=== PATIENT | male | born 1975 | race Caucasian/White ===

== ENCOUNTER 2016-08-21 09:54 | Emergency (ER) | payer MEDICARE ==
[~2016-08-21] VITALS: Ht 177.8 cm; Wt 66.0 kg
[2016-08-21 09:56] VITALS: BP 106/66; PULSE 76; RESP 20; TEMP 97.6; O2SAT 100
[2016-08-21 10:19] VITALS: BP 111/72; PULSE 63; RESP 16; O2SAT 100
--- NOTE | 2016-08-21 10:29 | PD ---
HPI Chief Complaint: OD/ Ingestion Time Seen by Provider: 10:16 Travel History International Travel<30 days: No Contact w/Intl Traveler<30days: No Traveled to known affect area: No History of Present Illness HPI This is a 41-year-old male with a history of depression, presents here at the request of his psychiatrist for overdose. Patient reportedly took 20 Klonopin. He reports taking 15 last night and 5 this morning. He also states he took 1 Seroquel and 2 Paxil. The patient reports he was trying to hurt himself. He denies any previous suicide attempts. When asked why he took the overdose, he reports that he is going through stress. He denies any other ingestion. He denies any other medical history. [facility] Social History Tobacco Use: No (unknown) Allergies-Medications (Allergen,Severity, Reaction): Coded Allergies: Penicillin (Verified Allergy, Severe, Anaphylaxis, 08/21/16) Review of Systems Except as stated in HPI: all other systems reviewed are Neg HENT: No: Headaches, Vertigo, Lightheadedness Cardiovascular: No: Chest Pain or Discomfort, Palpitations Respiratory: No: Cough, Shortness of Breath Gastrointestinal: No: Nausea, Vomiting, Abdominal Pain Genitourinary: No: Frequency, Dysuria Musculoskeletal: No: Weakness Neurologic: Positive: Other (slight sleepiness), No: Weakness, Dizziness, Change in Mentation, Slurred Speech Psychiatric: Positive: Depression, Suicidal Ideations, No: Homicidal Ideation Physical Exam Narrative GENERAL: Well-developed well-nourished male in no acute respiratory distress. SKIN: Focused skin assessment warm/dry. HEAD: Atraumatic. Normocephalic. EYES: Pupils equal and round. No scleral icterus. No injection or drainage. ENT: No nasal bleeding or discharge. Mucous membranes pink and moist. NECK: Trachea midline. No JVD. CARDIOVASCULAR: Regular rate and rhythm. No murmur appreciated. RESPIRATORY: No accessory muscle use. Clear to auscultation. Breath sounds equal bilaterally. GASTROINTESTINAL: Abdomen soft, non-tender, nondistended. Hepatic and splenic margins not palpable. MUSCULOSKELETAL: No obvious deformities. No clubbing. No cyanosis. No edema. NEUROLOGICAL: Awake and slightly sleepy. No obvious cranial nerve deficits. Motor grossly within normal limits. Questionable minimal slurred speech. PSYCHIATRIC: Flat affect with minimal conversation. Data Data Last Documented VS Vital Signs Date Time Temp Pulse Resp B/P Pulse Ox O2 Delivery O2 Flow Rate FiO2 08/21/16 10:19 63 16 111/72 100 08/21/16 09:56 97.6 Room Air Orders Electrocardiogram (08/21/16 10:16) Basic Metabolic Panel (Bmp) (08/21/16 10:16) Complete Blood Count With Diff (08/21/16 10:16) Iv Access Insert/Monitor (08/21/16 10:16) Ecg Monitoring (08/21/16 10:16) Oximetry (08/21/16 10:16) Call Poison Control (08/21/16 10:16) Drug Screen, Random Urine (08/21/16 10:16) Alcohol (Ethanol) (08/21/16 10:16) Salicylates (Aspirin) (08/21/16 10:16) Tylenol (Acetaminophen) (08/21/16 10:16) Ckmb (Isoenzyme) Profile (08/21/16 10:23) Troponin I (08/21/16 10:23) Psych Screen (08/21/16 10:44) Hepatic Functional Panel (08/21/16 11:02) CKMB (08/21/16 10:15) CKMB% (08/21/16 10:15) Electrocardiogram (08/21/16 12:05) Labs Laboratory Tests Test 08/21/16 08/21/16 08/21/16 08/21/16 10:15 10:20 10:39 10:45 Sodium Level 140 MEQ/L Potassium Level 4.1 MEQ/L Chloride Level 106 MEQ/L Carbon Dioxide Level 27.4 MEQ/L Anion Gap 7 MEQ/L Blood Urea Nitrogen 8 MG/DL Creatinine 1.14 MG/DL Estimat Glomerular Filtration 71 ML/MIN Rate Random Glucose 91 MG/DL Calcium Level 9.4 MG/DL Total Bilirubin 0.5 MG/DL Direct Bilirubin 0.1 MG/DL Indirect Bilirubin 0.4 MG/DL Aspartate Amino Transf 14 U/L (AST/SGOT) Alanine Aminotransferase 22 U/L (ALT/SGPT) Alkaline Phosphatase 69 U/L Total Creatine Kinase 116 U/L Creatine Kinase MB LESS THAN 0.5 NG/ML Troponin I LESS THAN 0.02 NG/ML Total Protein 7.8 GM/DL Albumin 4.0 GM/DL Acetaminophen Level LESS THAN 2.0 MCG/ML Ethyl Alcohol Level 4 MG/DL White Blood Count 7.1 TH/MM3 Red Blood Count 5.18 MIL/MM3 Hemoglobin 15.9 GM/DL Hematocrit 46.8 % Mean Corpuscular Volume 90.4 FL Mean Corpuscular Hemoglobin 30.6 PG Mean Corpuscular Hemoglobin 33.9 % Concent Red Cell Distribution Width 13.0 % Platelet Count 184 TH/MM3 Mean Platelet Volume 8.7 FL Neutrophils (%) (Auto) 63.6 % Lymphocytes (%) (Auto) 28.4 % Monocytes (%) (Auto) 5.8 % Eosinophils (%) (Auto) 1.7 % Basophils (%) (Auto) 0.5 % Neutrophils # (Auto) 4.5 TH/MM3 Lymphocytes # (Auto) 2.0 TH/MM3 Monocytes # (Auto) 0.4 TH/MM3 Eosinophils # (Auto) 0.1 TH/MM3 Basophils # (Auto) 0.0 TH/MM3 CBC Comment DIFF FINAL Differential Comment Salicylates Level 3.6 MG/DL Urine Opiates Screen NEG Urine Barbiturates Screen NEG Urine Amphetamines Screen NEG Urine Benzodiazepines Screen POS Urine Cocaine Screen NEG Urine Cannabinoids Screen NEG MDM Medical Decision Making Medical Screen Exam Complete: Yes Emergency Medical Condition: Yes Differential Diagnosis Suicide attempt versus intentional overdose versus electrolyte derangement Narrative Course 41-year-old male who presents after intentional overdose. The patient was placed on a [place] act by this physician as he did state he wanted to kill himself. The patient took 20 Klonopin 1 Seroquel and 2 Paxil. Poison control was contacted and recommended we check LFTs and a repeat EKG after 1 hour. Repeat EKG shows no evidence of acute changes. The rest of his workup is negative. He is medically cleared for psychiatric admission. Diagnosis Primary Impression: intentional overdose Additional Impressions: suicidal attempt/ideation Depression Jalil Ureña MD Aug 21, 2016 10:29
[2016-08-21 10:47] LABS: AUTOMATED NEUTROPHIL # 4.5 TH/MM3 (1.8-7.7); BASOPHIL % 0.5 % (0.0-2.0); EOSINOPHIL # 0.1 TH/MM3 (0-0.4); EOSINOPHIL % 1.7 % (0.0-4.0); HEMATOCRIT 46.8 % (39.0-51.0); HEMO FLAGS DIFF FINAL; LYMPH % 28.4 % (9.0-44.0); MEAN CELL VOLUME 90.4 FL (80.0-100.0); MEAN CORPUSCULAR HEMOGLOBIN 30.6 PG (27.0-34.0); MEAN CORPUSCULAR HGB CONC 33.9 % (32.0-36.0); MONO % 5.8 % (0.0-8.0); NEUT % 63.6 % (16.0-70.0); PLATELET COUNT 184 TH/MM3 (150-450); RED BLOOD COUNT 5.18 MIL/MM3 (4.50-5.90); WHITE BLOOD COUNT 7.1 TH/MM3 (4.0-11.0)
[2016-08-21 10:58] LABS: ACETAMINOPHEN LESS THAN 2.0 MCG/ML (10.0-30.0); ANION GAP 7 MEQ/L (5-15); BICARBONATE 27.4 MEQ/L (21.0-32.0); BLOOD UREA NITROGEN 8 MG/DL (7-18); CHLORIDE 106 MEQ/L (98-107); GLOMERULAR FILTRATION RATE 71 ML/MIN (>89); POTASSIUM 4.1 MEQ/L (3.5-5.1); SODIUM (NA) 140 MEQ/L (136-145)
[2016-08-21 11:17] LABS: AMPHETAMINE, URINE NEG (NEG); BARBITURATES, URINE NEG (NEG); COCAINE, URINE NEG (NEG)
[2016-08-21 11:23] LABS: INDIRECT BILIRUBIN 0.4 MG/DL (0.0-0.8); TOTAL BILIRUBIN ADULT 0.5 MG/DL (0.2-1.0)
[2016-08-21 11:24] LABS: CREATINE KINASE 116 U/L (39-308)
[2016-08-21 11:43] LABS: CKMB LESS THAN 0.5 NG/ML (0.5-3.6)
[2016-08-21] MEDS ORDERED: SERO100T PO (15:04)
[2016-08-21] MEDS ORDERED: PROZ20CA11 PO (15:05)
[2016-08-21 18:25] VITALS: BP 95/54; PULSE 61; RESP 16; O2SAT 95
[2016-08-21 22:20] VITALS: BP 119/57; PULSE 78; RESP 18; O2SAT 95
[2016-08-22 02:00] VITALS: BP 105/50; PULSE 63; RESP 16; O2SAT 98
[2016-08-22 06:00] VITALS: BP 125/59; PULSE 66; RESP 19; O2SAT 97
--- NOTE | 2016-08-22 13:32 | EKG ---
Date Performed: 08/21/2016 Time Performed: 12:44:42 PTAGE: 41 years EKG: Sinus rhythm LEFT ATRIAL ENLARGEMENT INCOMPLETE RIGHT BUNDLE BRANCH BLOCK TYPE 3 BRUGADA PATTERN (NON-DIAGNOSTIC) ABNORMAL ECG NO PREVIOUS TRACING DOCTOR: Trent Alfaro Interpretating Date/Time 08/22/2016 13:32:13
--- NOTE | 2016-08-22 13:35 | EKG ---
Date Performed: 08/21/2016 Time Performed: 10:21:16 PTAGE: 41 years EKG: SINUS BRADYCARDIA LEFT ATRIAL ENLARGEMENT POSSIBLE RIGHT VENTRICULAR CONDUCTION DELAY TYPE 3 BRUGADA PATTERN (NON-DIAGNOSTIC) ABNORMAL ECG NO PREVIOUS TRACING DOCTOR: Trent Alfaro Interpretating Date/Time 08/22/2016 13:35:04
[2016-08-22 16:20] VITALS: BP 113/62; PULSE 70; RESP 16; TEMP 96.2; O2SAT 97
== END 2016-08-22 16:47 | disposition home or self-care (01) ==
LOC: NEPE 09:54 → NEPJ 08-22 16:47
DX: T42.4X2A Poisoning by benzodiazepines, intentional self-harm, initial encounter (principal); T43.592A Poisoning by other antipsychotics and neuroleptics, intentional self-harm, initial encounter; T43.222A Poisoning by selective serotonin reuptake inhibitors, intentional self-harm, initial encounter; F32.9 Major depressive disorder, single episode, unspecified; R94.31 Abnormal electrocardiogram [ECG] [EKG]
CPT/HCPCS: 80048; 80076; 80307; 82550; 82552; 84484; 85025; 93005

== ENCOUNTER 2016-08-25 10:04 | Emergency (ER) | payer MEDICARE ==
[~2016-08-25] VITALS: Ht 180.3 cm; Wt 63.5 kg
[~2016-08-25 10:04] MED LIST: PROZ20CA11 PO; SERO100T PO
[2016-08-25 10:06] VITALS: BP 140/73; PULSE 78; RESP 16; TEMP 98.3; O2SAT 100
[2016-08-25] MEDS ORDERED: BUPR100CR PO (10:23)
--- NOTE | 2016-08-25 10:44 | PD ---
HPI Chief Complaint: Psychiatric Symptoms Time Seen by Provider: 10:27 Travel History International Travel<30 days: No Contact w/Intl Traveler<30days: No Traveled to known affect area: No History of Present Illness HPI This patient presents with his for psychiatric evaluation. He was here 4 days ago and placed under [place] act for suicidal ideation. He stayed in psychiatry 2 nights and was discharged 2 days ago. He doesn't feel any different or better. He still feels depressed and suicidal. He has no specific plan. He has not taken any medication today. No alcohol or drug use. Severity of symptoms is moderate. Duration of his depression has been 2 full months. No alleviating factors. He requests repeat psychiatric evaluation. He has no physical complaints PFSH Past Medical History Depression: Yes Heart Rhythm Problems: Yes Cardiovascular Problems: Yes Diminished Hearing: No Psychiatric: Yes (SI) Tetanus Vaccination: > 5 Years Influenza Vaccination: No Past Surgical History AICD: Yes Cardiac Surgery: Yes (DESFIBRILLATOR) Social History Alcohol Use: Yes (OCASSIONALLY) Tobacco Use: Yes (1 PACK PER DAY) Substance Use: No (Patient denies. ) Allergies-Medications (Allergen,Severity, Reaction): Coded Allergies: Penicillin (Verified Allergy, Severe, Anaphylaxis, 08/25/16) Per pt. Reported Meds & Prescriptions Reported Meds & Active Scripts Active Reported Wellbutrin SR 12 HR (Bupropion HCl) 100 Mg Tab 100 Mg PO DAILY Seroquel (Quetiapine Fumarate) 100 Mg Tab 100 Mg PO HS Review of Systems General / Constitutional: No: Fever Eyes: No: Visual changes HENT: No: Headaches Cardiovascular: No: Chest Pain or Discomfort Respiratory: No: Shortness of Breath Gastrointestinal: No: Abdominal Pain Genitourinary: No: Dysuria Musculoskeletal: No: Pain Skin: No Rash Neurologic: No: Weakness Psychiatric: Positive: Depression, Suicidal Ideations Endocrine: No: Polydipsia Hematologic/Lymphatic: No: Easy Bruising Physical Exam Narrative GENERAL: Well-nourished, well-developed patient in no apparent distress. SKIN: Focused skin assessment reveals no rash and nodules. Skin is Warm and dry. HEAD: Atraumatic. Normocephalic. EYES: Pupils equal and round. No scleral icterus. No injection or drainage. ENT: No nasal bleeding or discharge. Mucous membranes pink and moist. NECK: Trachea midline. No JVD. CARDIOVASCULAR: Regular rate and rhythm. No murmur appreciated. RESPIRATORY: No accessory muscle use. Clear to auscultation. Breath sounds equal bilaterally. GASTROINTESTINAL: Abdomen soft, non-tender, nondistended. Hepatic and splenic margins not palpable. MUSCULOSKELETAL: No obvious deformities. No clubbing. No cyanosis. No edema. NEUROLOGICAL: Awake and alert. No obvious cranial nerve deficits. Motor grossly within normal limits. Normal speech. PSYCHIATRIC: Depressed mood and flat affect; insight and judgment questionable. Data Data Last Documented VS Vital Signs Date Time Temp Pulse Resp B/P Pulse Ox O2 Delivery O2 Flow Rate FiO2 08/25/16 10:26 16 76 08/25/16 10:06 98.3 140/73 100 Orders Psych Screen (08/25/16 10:35) [facility] Medical Decision Making Medical Screen Exam Complete: Yes Emergency Medical Condition: Yes Medical Record Reviewed: Yes Differential Diagnosis Suicidal ideation, depression, adjustment disorder Narrative Course I have reviewed the patient's electronic medical record. Reviewed his ER visit from August 21, 2016 where he was [place] acted His medical workup from that day was entirely normal. I believe he is is medically stable as I can make him. I don't feel repeating that workup from 4 days ago is going to be useful or change any management. He has normal vital signs and a normal exam and no physical symptoms. I've ordered psychiatric evaluation. Disposition will be per psychiatry Diagnosis Primary Impression: Suicidal ideation Additional Impression: Depression Qualified Code: F32.9 - Depression, unspecified depression type Roni Macias MD Aug 25, 2016 10:44
[2016-08-25 13:15] VITALS: BP 112/76; PULSE 69; RESP 18; TEMP 98.6; O2SAT 96
[2016-08-25 15:15] VITALS: BP 112/76; PULSE 69; RESP 18; O2SAT 96
--- NOTE | 2016-08-25 15:33 | PD.CONS ---
Provisional Diagnosis Admission Date [place] I. Major depressive disorder recurrent severe without psychosis f 33.2 History of Present Illness Service Psychiatry Consult Requested By [facility] Reason for Consult Assessment Primary Care Physician Brittanie Adams MD HPI Patient is a 41-year-old white male returns to the emergency department after visiting the ED on 08/21 for the overdose of Klonopin patient seen screened and released home. It appears patient does see Dr. chavarria local psychiatrist to his been treating him for the past year or so for depression. Dr. Hendrix adjust discontinue Prozac and ordered Wellbutrin for the patient but has not started that. The patient had been on Seroquel at at bedtime also. Patient denies suicidality homicidality voices or visions. Does deny any alcohol or drug use. Though he states he does have a past history of alcohol abuse including one DUI and some type of criminal mischief. He states the Klonopin he took was his 's that she takes for a history of PTSD. 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 The patient still smokes cigarettes. Patient was seen in [place] for similar problems. The denies any inpatient psychiatric stays either in [place] for down here. It appears his moved down here about 2-1/2 years ago bought a condominium and he followed her down here about 2 years ago. Patient does state that his "mother's" M a lot. In any event the patient feels safe going home. Is able contracted to no harm. Has no suicidal thoughts at this time. He does have a psychiatrist he can see next week. I am recommending that he start his Wellbutrin per that psychiatrist prescription today. He should continue his at bedtime Seroquel no change. And I will order Seroquel 25 mg a.m. and 4 PM as an adjunct Review of Systems Constitutional: DENIES: Diaphoretic episodes, Fatigue, Fever, Weight gain, Weight loss, Chills, Dizziness, Change in appetite, Night Sweats Endocrine: DENIES: Heat/cold intolerance, Polydipsia, Polyuria, Polyphagia Eyes: DENIES: Blurred vision, Diplopia, Eye inflammation, Eye pain, Vision loss , Photosensitivity, Double Vision Ears, nose, mouth, throat: DENIES: Tinnitus, Hearing loss, Vertigo, Nasal discharge, Oral lesions, Throat pain, Hoarseness, Ear Pain, Running Nose, Epistaxis, Sinus Pain, Toothache, Odynophagia Respiratory: DENIES: Apneas, Cough, Snoring, Wheezing, Hemoptysis, Sputum production, Shortness of breath Cardiovascular: DENIES: Chest pain, Palpitations, Syncope, Dyspnea on Exertion , PND, Lower Extremity Edema, Orthopnea, Claudication Gastrointestinal: DENIES: Abdominal pain, Black stools, Bloody stools, Constipation, Diarrhea, Nausea, Vomiting, Difficulty Swallowing, Anorexia Genitourinary: DENIES: Sexual dysfunction, Urinary frequency, Urinary incontinence, Urgency, Hematuria, Dysuria, Nocturia, Penile Discharge, Testicular Pain, Testicular Swelling Musculoskeletal: DENIES: Joint pain, Muscle aches, Stiffness, Joint Swelling, Back pain, Neck pain Integumentary: DENIES: Abnormal pigmentation, Nail changes, Pruritus, Rash Hematologic/lymphatic: DENIES: Bruising, Lymphadenopathy Immunologic/allergic: DENIES: Eczema, Urticaria Neurologic: DENIES: Abnormal gait, Headache, Localized weakness, Paresthesias, Seizures, Speech Problems, Tremor, Poor Balance Psychiatric: COMPLAINS OF: Anxiety (mild), Depression (moderate), Suicidal Ideation (denies at this time) Past Family Social History Coded Allergies: Penicillin (Verified Allergy, Severe, Anaphylaxis, 08/25/16) Per pt. Past Medical History History of pulmonary problems secondary to working as a application systems administrator the school in [place] possibly asbestosis Reported Medications Bupropion HCl ER 12 HR (Wellbutrin SR 12 HR)100 Mg [id number] Mg PO DAILY Ref 0 08/25/16 Quetiapine (Seroquel)100 Mg [id number] Mg PO HS 08/21/16 Discontinued Reported Medications Fluoxetine (Prozac)20 Mg Cap30 Mg PO DAILY 08/21/16 Family History Patient denies any mental illness in family but there is a strong history of alcohol in the father's family Social History Patient lives the second both are on disability Patient's Strengths (min. 2) Patient verbal irritable access healthcare Physical Exam Patient seen screened in ED exam reviewed and agreed with Vital Signs Vital Signs Date Time Temp Pulse Resp B/P Pulse Ox O2 Delivery O2 Flow Rate FiO2 08/25/16 15:15 69 18 112/76 96 Room Air 08/25/16 13:15 98.6 Mental Status Examination Alert oriented thin slender white male short dark hair balding fairly thick goatee type gann, he is calm cooperative with good eye contact reactive with occasional small smile Appearance Clean need Speech: Unremarkable Orientation: x3 Memory: Unremarkable Thought Process: Logical Thought Content: Unremarkable Language Latvian Fund of Knowledge Fair Hallucination Type: None Attention and Concentration: Other (fair) Suicidal Ideation: No (denies at this time able contracted to no harm) Previous Suicide Attempts: Yes Homicidal Ideation: No (denies) Previous Homicide Attempts: No (denies) Insight: Poor Judgment: Poor Affect: Other (slight decrease range of motion intensity) Mood: Euthymic (to moderately dysphoric) Motor Activity: Normal gait Assessment & Plan Problem List: (1) Major depressive disorder, recurrent severe without psychotic features ICD Code: F33.2 Assessment & Plan Estimated LOS: days patient does not meet criteria for inpatient psychiatric stay. He has appropriate medication at hand with his Wellbutrin and at bedtime Seroquel, I will add schedule Seroquel during the day 25 mg 8 AM and 4 PM. He has established psychiatrist many conceive this week. Patient is able contracted to no harm Discharge Planning See above Request HC Surrog/Guard Advoc?: No Eben Tejeda MD Aug 25, 2016 15:33
[2016-08-25] MEDS ORDERED: SERO25TA PO (15:35)
== END 2016-08-25 17:13 | disposition home or self-care (01) ==
LOC: NEPE 10:04 → NEPJ 17:13
DX: F33.2 Major depressive disorder, recurrent severe without psychotic features (principal)
CPT/HCPCS: 99284

== ENCOUNTER 2016-08-25 17:11 | Inpatient (IN) | payer OTHER, MEDICARE ==
[~2016-08-25] VITALS: Ht 180.3 cm; Wt 60.5 kg
[~2016-08-25 17:11] MED LIST changes: +BUPR100CR PO; +SERO25TA PO
[2016-08-25 17:12] VITALS: BP 125/77; PULSE 74; TEMP 98.7; O2SAT 98
[2016-08-25 17:30] VITALS: BP 100/59; PULSE 60; RESP 18; TEMP 97.9; O2SAT 97
[2016-08-25] MEDS ORDERED: QUEtiapine FUMARATE 100 MG TAB PO ONE (20:45)
--- NOTE | 2016-08-25 20:50 | PD ---
HPI Chief Complaint: Psychiatric Symptoms Time Seen by Provider: 20:30 Travel History International Travel<30 days: No Contact w/Intl Traveler<30days: No Traveled to known affect area: No History of Present Illness HPI 41-year-old male with history of major depressive disorder presents voluntarily for psychiatric evaluation. He reports over the past 2 months he has been having increasing feelings of depression and suicidal thoughts. He reports that he occasionally has thoughts of taking a handful of pills in order to kill himself. The patient was seen here on August 21 for psychiatric evaluation and again earlier today. In fact he was just released a few hours ago after seeing psychiatrist Dr. Tejeda and being discharged. Per his note his dose of Seroquel was going to be increased and he was going to follow-up with his psychiatrist Dr. Benites. When the patient left the emergency department his convinced him to return for reexamination. He continues to feel depressed. Denies any acute drug or alcohol use. Denies any hallucinations. He has no other complaints at this time. PFS Past Medical History Depression: Yes Heart Rhythm Problems: Yes Cardiovascular Problems: Yes Diminished Hearing: No Psychiatric: Yes (SI) Past Surgical History AICD: Yes Cardiac Surgery: Yes (DESFIBRILLATOR) Social History Alcohol Use: Yes (OCASSIONALLY) Tobacco Use: Yes (1 PACK PER DAY) Substance Use: No (Patient denies. ) Allergies-Medications (Allergen,Severity, Reaction): Coded Allergies: Penicillin (Verified Allergy, Severe, Anaphylaxis, 08/25/16) Per pt. Reported Meds & Prescriptions Reported Meds & Active Scripts Active Seroquel (Quetiapine Fumarate) 25 Mg Tab 25 Mg PO BID@08,16 Reported Wellbutrin SR 12 HR (Bupropion HCl) 100 Mg Tab 100 Mg PO DAILY Seroquel (Quetiapine Fumarate) 100 Mg Tab 100 Mg PO HS Review of Systems Except as stated in HPI: all other systems reviewed are Neg Physical Exam Narrative GENERAL: Well-developed well-nourished male in no acute distress SKIN: Warm and dry. HEAD: Atraumatic. Normocephalic. EYES: Pupils equal and round. No scleral icterus. No injection or drainage. ENT: No nasal bleeding or discharge. Mucous membranes pink and moist. NECK: Trachea midline. No JVD. CARDIOVASCULAR: Regular rate and rhythm. No murmur appreciated. RESPIRATORY: No accessory muscle use. Clear to auscultation. Breath sounds equal bilaterally. GASTROINTESTINAL: Abdomen soft, non-tender, nondistended. Hepatic and splenic margins not palpable. MUSCULOSKELETAL: No obvious deformities. No clubbing. No cyanosis. No edema. NEUROLOGICAL: Awake and alert. No obvious cranial nerve deficits. Motor grossly within normal limits. Normal speech. PSYCHIATRIC: Somewhat depressed in appearance. His insight and judgment appear reasonable. Data Data Last Documented VS Vital Signs Date Time Temp Pulse Resp B/P Pulse Ox O2 Delivery O2 Flow Rate FiO2 08/25/16 17:30 97.9 60 18 100/59 97 Room Air Orders Diet Regular Basic (08/26/16 Breakfast) Quetiapine (Seroquel) (08/25/16 20:45) MDM Medical Decision Making Medical Screen Exam Complete: Yes Emergency Medical Condition: Yes Medical Record Reviewed: Yes Differential Diagnosis Major depressive disorder, depressive disorder not otherwise specified, acute psychosis, substance-induced disorder, adjustment reaction, affect disorder, schizophrenia, bipolar disorder Narrative Course 41-year-old male presents voluntarily for psychiatric evaluation. Seen earlier today by the psychiatrist, discharged. Reviewed his lab work from August 21, . He is medically cleared. He will be remaining here overnight and in the morning he will see the psychiatrist. He will be given his nighttime dose of Seroquel. Diagnosis Primary Impression: Depression Qualified Code: F32.9 - Depression, unspecified depression type Jorge Chacon Aug 25, 2016 20:50
[2016-08-25 22:00] VITALS: BP 110/55; PULSE 63; RESP 19; O2SAT 99
[2016-08-26 02:18] VITALS: BP 105/55; PULSE 62; RESP 18; O2SAT 96
[2016-08-26 06:31] VITALS: BP 107/58; PULSE 62; RESP 18
--- NOTE | 2016-08-26 06:59 | MH ---
cc: RYAN LIZ DATE OF ADMISSION: 08/25/2016 ADMISSION DIAGNOSIS 1. Major depressive disorder, recurrent, severe without psychotic features, F33.2. LEGAL STATUS The patient is voluntary. He may consent for admission as well as for psychotropic medications. HISTORY OF PRESENT ILLNESS Mr. Samano is a 41-year-old male with a reported history of depression who presents voluntarily for psychiatric evaluation. Reviewing the electronic medical record, I note that the patient presented approximately five days ago following a suicidal overdose on his 's Klonopin and was also in the ED yesterday for suicidal ideation when he was seen by Dr. Tejeda as he was not meeting inpatient criteria at this time. The patient returned later yesterday evening complaining of suicidal ideation. The patient is seen and examined, chart reviewed, case discussed with nurse in the J pod. On my examination today, the patient reports three months of worsening depression, no clear trigger. He says that he has been experiencing decreased motivation, decreased energy, anhedonia. He is ambivalent about ongoing suicidal ideations, saying that he is experiencing suicidal ideation, "yes and no." He is likewise ambivalent about surviving his overdose. He denies any audiovisual hallucinations at this time and I can elicit no delusional beliefs. I can elicit no current symptoms of hypomania or carmelo, although the patient does describe vague history of perhaps some increased goal-directed activity without associated symptoms of mood instability with clarification. He also has some anxious rumination. The remainder of the psychiatric ROS is negative. PAST PSYCHIATRIC HISTORY History of depression and also reportedly ADHD. He saw his psychiatrist, Dr. Benites, last week when he was reportedly switched from Prozac to Wellbutrin. He denies any history of psychiatric admissions. He reports the history of overdose on about 25 Klonopin last week. He denies a history of non-suicidal self-injurious behavior. In addition to the Wellbutrin, he was also prescribed Topamax, although it appears this is for headaches as well as Seroquel at bedtime. FAMILY HISTORY The patient denies any family history of serious mental illness or suicide. He does report an extensive family history of alcoholism on his father's side of the family. CHEMICAL DEPENDENCY HISTORY The patient reports occasional alcohol. He does endorse a history of blackouts, but none recently. Denies any DTs or seizures. He does have a history of Ecstasy and cocaine use. SOCIAL HISTORY The patient reports he has been for 7 years. This is his second marriage. He has children from a previous relationship. He is disabled. He denies any or legal history. Denies any access to guns or firearms. 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 REVIEW OF SYSTEMS No reported headache, vision or hearing changes, chest pain, shortness of breath, bowel or bladder issues. No other physical complaints. In particular the patient denies any palpitations or cardiovascular symptoms. PAST MEDICAL HISTORY Includes Brugada syndrome. ALLERGIES PENICILLIN. PHYSICAL EXAMINATION VITAL SIGNS: His temperature is 97.9, pulse 62, respirations 18, blood pressure 105/55, pulse oximetry 96% on room air. Physical examination was completed by the ED provider. On my examination today, the patient appears to be in no acute physical distress. No motor abnormalities noted. LABORATORY Reviewed: No laboratories were obtained today, but we do have Laboratories from his visit on the . At that time CBC was unremarkable. CMP was significant for mildly decreased GFR. Troponins and CK were negative x 1. Toxicology at that time was positive for benzodiazepines and alcohol level was undetectable. MENTAL STATUS EXAMINATION The patient is in hospital gown. He is well-groomed. He is awake, alert and oriented x 3. No motor abnormalities noted. Speech is within normal limits for rate, tone and volume. Language and fund of knowledge seem average. Mood is depressed and affect is restricted. Thought process linear. No loosening of associations. No evident delusions. Denies audiovisual hallucinations. Endorses ambivalence regarding ongoing suicidal ideation. He does deny any urge to hurt himself on the inpatient psychiatric unit or while in the ED. Denies any homicidal ideation. Insight and judgment are fair. ASSESSMENT AND PLAN This is a 41-year-old male with psychiatric history as detailed above who presents on a voluntary basis for psychiatric evaluation. He had been evaluated yesterday by Dr. Tejeda and at that time was denying suicidal ideation and sylvain for safety, but he appears to have had a change in his thoughts. He does endorses ambivalence regarding suicidal ideation now and does not contract for safety. He is requesting voluntary psychiatric admission. I will plan to admit the patient to the inpatient psychiatric unit for a period of observation for safety. 1. Admit inpatient, voluntary status. 2. Check a BMP, lipid panel and hemoglobin A1c in the morning. 3. I will continue the patient's prescribed psychotropics, the Wellbutrin and Seroquel. I have cautioned the patient regarding the risk of long QT syndrome with atypical antipsychotics, but the patient says that he has never had any trouble with his 100 mg at bedtime dose, and so I will continue this. 4. Atarax as needed for anxiety. 5. Benadryl as needed for sleep. 6. Cogentin as needed for EPS. 7. Vitals every shift. 8. Counselor to see. 9. Disposition planning. ESTIMATED LENGTH OF STAY: 3-5 days. Ryan Liz DC/ISRAEL /6:32 AM /6:49 AM DANIEL
[2016-08-26] MEDS ORDERED: ALUMINUM/MAGNESIUM/SIMETH 30 ML CUP PO PRN (08:00)
[2016-08-26] MEDS ORDERED: hydrOXYzine HCL 50 MG TAB PO PRN (08:00)
[2016-08-26] MEDS ORDERED: ACETAMINOPHEN 325 MG TAB PO PRN (08:00)
[2016-08-26] MEDS ORDERED: MAGNESIUM HYDROXIDE SUSP 30 ML CUP PO PRN (09:00)
[2016-08-26] MEDS ORDERED: BENZTROPINE MESYLATE 2 MG/2 ML VIAL IM PRN (09:00)
[2016-08-26] MEDS ORDERED: BENZTROPINE MESYLATE 1 MG TAB PO PRN (09:00)
[2016-08-26 09:03] VITALS: BP 107/58; PULSE 62; RESP 18
[2016-08-26] MEDS: NICOTINE 21 MG/24 HR PATCH T-DERMAL SCH (09:50)
[2016-08-26] MEDS: buPROPion HCL 100 MG SUSTAINED RELEASE TAB PO SCH (09:50)
[2016-08-26] MEDS: REMOVE OLD PATCH T-DERMAL SCH (09:50)
[2016-08-26 10:50] VITALS: BP 115/69; PULSE 78; RESP 16; TEMP 98; O2SAT 96
[2016-08-26] MEDS: QUEtiapine FUMARATE 100 MG TAB PO SCH (20:28)
[2016-08-26] MEDS ORDERED: diphenhydrAMINE HCL 50 MG CAP PO PRN (21:00)
[2016-08-27 05:19] VITALS: BP 114/59; PULSE 73; RESP 18; TEMP 97.7; O2SAT 96
[2016-08-27 07:33] LABS: ANION GAP 7 MEQ/L (5-15); BICARBONATE 31.3 MEQ/L (21.0-32.0); BLOOD UREA NITROGEN 15 MG/DL (7-18); CHLORIDE 104 MEQ/L (98-107); GLOMERULAR FILTRATION RATE 72 ML/MIN (>89); HDL CHOLESTEROL 39.8 MG/DL (40.0-60.0); LDL CHOLESTEROL 98 MG/DL (0-99); POTASSIUM 3.9 MEQ/L (3.5-5.1); SODIUM (NA) 142 MEQ/L (136-145)
[2016-08-27] MEDS: REMOVE OLD PATCH T-DERMAL SCH (09:00)
[2016-08-27] MEDS: buPROPion HCL 100 MG SUSTAINED RELEASE TAB PO SCH (09:09)
[2016-08-27] MEDS: NICOTINE 21 MG/24 HR PATCH T-DERMAL SCH (09:09)
--- NOTE | 2016-08-27 11:28 | HHI.PYPN ---
Subjective Remarks Continues to be markedly depressed and suicidal. States this is gone on for weeks and he does not have an explanation as to why he feels the way he does. He does report accompanying symptoms of depressed mood, anhedonia, social withdrawal, isolation, decreased energy, etc. He reports his feelings are severely impaired and that he is nonfunctional. Review of Systems ROS Limitations: Clinical Condition Objective Alert: Yes [place]: Person, Place, Date, Situation Mood: Calm Affect: Euthymic Memory Intact: Immediate, Recent, Remote Hallucinations: Other Delusions: No Delusion Type: Other Suicidal: Ideation Homicidal: Ideation Insight/Judgment Impaired. Labs Test 08/27/16 06:00 Sodium Level 142 MEQ/L Potassium Level 3.9 MEQ/L Chloride Level 104 MEQ/L Carbon Dioxide Level 31.3 MEQ/L Anion Gap 7 MEQ/L Blood Urea Nitrogen 15 MG/DL Creatinine 1.13 MG/DL Estimat Glomerular Filtration 72 ML/MIN Rate Random Glucose 88 MG/DL Calcium Level 9.0 MG/DL Triglycerides Level 147 MG/DL Cholesterol Level 167 MG/DL LDL Cholesterol 98 MG/DL HDL Cholesterol 39.8 MG/DL Cholesterol/HDL Ratio 4.19 RATIO Vitals/IOs Vital Signs Date Time Temp Pulse Resp B/P Pulse Ox O2 Delivery O2 Flow Rate FiO2 08/27/16 05:19 97.7 73 18 114/59 96 08/26/16 09:03 Room Air Intake and Output 08/26/16 08/26/16 08/27/16 08:00 16:00 00:00 Intake Total 360 ml Balance 360 ml Assessment & Plan Problem List: (1) Major depressive disorder, recurrent severe without psychotic features ICD Code: F33.2 Assessment & Plan Estimated LOS: 3 days this physician will evaluate patient's antidepressant medications and make changes to stabilize his mood. Anticipate he will be in the hospital for several days while we titrate his antidepressants. He will be asked to participate in individual and group therapies. Justification for Cont. Inpt. Active suicidality with plan. Nasir Zuleta MD Aug 27, 2016 11:28
[2016-08-27 16:34] LABS: HEMOGLOBIN A1a 0.9 %; HEMOGLOBIN A1b 1.4 %; HEMOGLOBIN Ao 86.9 %; HEMOGLOBIN LA1C 1.8 %; HEMOGLOBIN P3 3.3 %
[2016-08-27 17:44] VITALS: BP 131/80; PULSE 75; RESP 18; TEMP 97.6; O2SAT 97
[2016-08-27] MEDS: QUEtiapine FUMARATE 100 MG TAB PO SCH (20:46)
[2016-08-28 05:28] VITALS: BP 124/74; PULSE 90; RESP 17; TEMP 98; O2SAT 95
[2016-08-28] MEDS: NICOTINE 21 MG/24 HR PATCH T-DERMAL SCH (08:27)
[2016-08-28] MEDS: REMOVE OLD PATCH T-DERMAL SCH (08:28)
[2016-08-28] MEDS ORDERED: buPROPion HCL 150 MG SUSTAINED RELEASE TAB PO SCH (09:00)
--- NOTE | 2016-08-28 12:57 | HHI.PYPN ---
Subjective Remarks Patient continues to report symptoms of depression and suicidal ideation but they are intermittent. He is tolerating the Wellbutrin well and the dose will be increased to 300 mg tonight. Additionally, he may be capable of discharge in the next 1-2 days. Review of Systems ROS Limitations: Clinical Condition Objective Alert: Yes [place]: Person, Place, Date, Situation Mood: Anxious, Depressed Affect: Restricted Memory Intact: Immediate, Recent, Remote Hallucinations: Other Delusions: No Delusion Type: Other Suicidal: Ideation Homicidal: Ideation Insight/Judgment Impaired Vitals/IOs Vital Signs Date Time Temp Pulse Resp B/P Pulse Ox O2 Delivery O2 Flow Rate FiO2 08/28/16 05:28 98.0 90 17 124/74 95 08/26/16 09:03 Room Air Assessment & Plan Problem List: (1) Major depressive disorder, recurrent severe without psychotic features ICD Code: F33.2 Assessment & Plan Estimated LOS: One to 2 days will increase dose of Wellbutrin XL to 300 mg daily. Anticipate patient will be ready for discharge in the next 1-2 days as he is starting to respond to treatment. Justification for Cont. Inpt. Continued suicidal ideation although intermittent. Nasir Zuleta MD Aug 28, 2016 12:57
[2016-08-28 16:00] VITALS: BP 118/75; PULSE 69; RESP 18; TEMP 97.6; O2SAT 98
[2016-08-28] MEDS: QUEtiapine FUMARATE 100 MG TAB PO SCH (21:13)
[2016-08-28] MEDS: buPROPion HCL 150 MG SUSTAINED RELEASE TAB PO SCH (21:14)
[2016-08-29 05:54] VITALS: BP 115/61; PULSE 62; RESP 16; TEMP 97.3; O2SAT 98
[2016-08-29] MEDS: buPROPion HCL 150 MG SUSTAINED RELEASE TAB PO SCH (08:52)
[2016-08-29] MEDS: REMOVE OLD PATCH T-DERMAL SCH (08:53)
[2016-08-29] MEDS: NICOTINE 21 MG/24 HR PATCH T-DERMAL SCH (08:53)
--- NOTE | 2016-08-29 10:25 | HHI.DS ---
Psychiatry Discharge Summary Inpatient Psychiatric care?: Yes Advance Directive: No Reason Not Provided: will provide Mental Health AdvanceDirective: Yes Name and Number: Ly Samano [phone] Health Care Proxy: No Admission Admission Date Aug 26, 2016 at 06:29 Admission Diagnosis: (1) Major depressive disorder, recurrent severe without psychotic features ICD Code: F33.2 Brief History Patient was admitted as a result of multiple symptoms of depression with suicidal ideation. He had visited the emergency department twice prior to his admission. On both occasions he was suicidal and could not contract for safety at the second one. In with a medicine which had previously helped him, Wellbutrin. Tobacco Use In Past 30 Days: 5 or More Cigarettes/Day Alcohol Use: 2-3 Times Per Week Hospital Course Patient was started on Wellbutrin at the time of his admission. Initially he was put on the short acting form of the medication but eventually he was given the once a day dosing. At the time of discharge he was placed on 300 mg a day, considered maximum therapeutic dose. He participated in individual and group therapies. No procedures were performed. He was set up for follow up appointments at the time of discharge. Results Blood Pressure 115 / 61 Vital Signs Date Time Temp Pulse Resp B/P Pulse Ox O2 Delivery O2 Flow Rate FiO2 08/29/16 05:54 97.3 62 16 115/61 98 08/26/16 09:03 Room Air Laboratory Tests Test 08/27/16 06:00 Estimat Glomerular Filtration 72 ML/MIN (>89) Rate HDL Cholesterol 39.8 MG/DL (40.0-60.0) Laboratory Results Test 08/27/16 06:00 Hemoglobin A1c 5.1 % (4.3-6.0) Triglycerides Level 147 MG/DL (42-150) Cholesterol Level 167 MG/DL (120-200) LDL Cholesterol 98 MG/DL (0-99) HDL Cholesterol 39.8 MG/DL (40.0-60.0) Summary of Procedures None Pending results at discharge: No Medications # of Antipsychotic meds at D/C: 0 Approp Antipsych med options 1 - Minimum of three failed multiple trials of monotherapy. 2 - Documented plan to taper to monotherapy due to previous use of multiple meds OR cross-taper in progress at D/C. 3 - Documentation of augmentation of Clozapine. 4 - Justification other than those listed in allowable values 1-3, document here : Discharge Discharge Date: Aug 29, 2016 Discharge Diagnosis: (1) Major depressive disorder, recurrent severe without psychotic features ICD Code: F33.2 Mental Status Exam at Disch At the time of discharge the patient's mood and affect had improved significantly. He was no longer suicidal, homicidal or psychotic. Pt Condition on Discharge: Stable Discharge Disposition: Discharge Home Discharge Instructions Diet Instructions: As Tolerated, No Restrictions Activities you can perform: Regular-No Restrictions Scheduled Appointment: [facility] Appointment Date: Sep 03, 2016 Appointment Time: 9:45am Discharge Time <= 30 minutes Discharge/Advance Care Plan Health Problems: (1) Major depressive disorder, recurrent severe without psychotic features Goals to promote your health * To prevent worsening of your condition and complications * To maintain your health at the optimal level Directions to meet your goals Take your medications as prescribed Follow your dietary instruction Follow activity as directed Keep your appointments as scheduled Take your immunizations and boosters as scheduled If your symptoms worsen call your PCP, if no PCP go to Urgent Care Center or Emergency Room For 09/12 questions related to your inpatient stay or results of tests pending at discharge, please contact Dr. Nasir Zuleta at Smoking is Dangerous to Your Health. Avoid second hand smoking Nasir Zuleta MD Aug 29, 2016 10:25
[2016-08-29] MEDS ORDERED: QUET1TAB8 PO (10:38)
[2016-08-29] MEDS ORDERED: BUPR150CR PO (10:38)
== END 2016-08-29 13:15 | disposition home or self-care (01) | DRG 885 ==
LOC: NEPJ 17:11 → NEDA 08-26 06:29 → H260 08-26 11:20
PROVIDERS: ADMIT Psychiatry & Neurology Psychiatry; ATTEND Psychiatry & Neurology Psychiatry
DX: F33.2 Major depressive disorder, recurrent severe without psychotic features (principal); R45.851 Suicidal ideations; F90.9 Attention-deficit hyperactivity disorder, unspecified type
CPT/HCPCS: 80048; 80061; 83036; 99284